=== PATIENT | male | born 1945 | race Caucasian/White ===

== ENCOUNTER → 2016-12-09 | Day surgery (SDC) | payer OTHER ==
[~2016-12-09] VITALS: Ht 175.3 cm; Wt 89.0 kg
[~2016-12-09] MED LIST: ASPI81TA28 PO; FENTANYL CITRATE INJ 50 MCG/1 ML 2 ML VIAL ONE; LPT40 PO; MIDAZOLAM HCL 5 MG/ML 1 ML VIAL ONE; NAPR-1169 PO; OMEG10007 PO; SIMV40TA2 PO
[2016-12-09 16:02] VITALS: Ht 175.3 cm; Wt 89.0 kg
--- NOTE | 2016-12-09 16:14 | Endo History and Physical ---
History & Physical Date of Service: Dec 09, 2016. Chief Complaint: RECTAL BLEEDING Referring Physician: DR DEE History of Present Illness post polyp bleed Past Surgical History Hx Cardiac Surgery: No Hx Internal Defibrillator: No Hx Pacemaker: No Hx Abdominal Surgery: No Hx of Implantable Prosthesis: No Hx Post-Op Nausea and Vomiting: No Hx Cancer Surgery: No Hx Thoracic Surgery: No Hx Orthopedic: No Hx Urinary Tract Surgery: No Family History None Social History Smoking Status: Former Smoker Hx Substance Use: No Hx Alcohol Use: No Allergies Coded Allergies: No Known Allergies (Unverified , 12/09/16) Current Medications Reported Home Medications Medications Dose Route/Sig Max Daily Dose Days Date Category [place]-3 (Fish Oil) 1 Ea Cap 1 Cap PO 12/09/16 Reported Atorvastatin Calcium (Atorvastatin) 40 Mg Tab 40 Mg PO QD 12/09/16 Reported Aspirin Ec (Aspirin) 81 Mg Tab 81 Mg PO QAM 03/16/14 Reported Vital Signs Weight (Kilograms): 89 Height (Feet): 5 Height (Inches): 9 Date Time Temp Pulse Resp B/P Pulse Ox O2 Delivery O2 Flow Rate FiO2 12/09/16 16:07 36.8 71 20 159/90 97 Room Air Physical Exam General Appearance: no apparent distress Respiratory/Chest: Respiratory effort: no dyspnea Auscultation: breath sounds normal Cardiovascular: Heart Auscultation: RRR Assessment and Plan Post polyp bleed - cscopy
--- NOTE | 2016-12-09 16:37 | Discharge Instructions ---
Endoscopy Patient Instructions Date / Procedure(s) Performed Dec 09, 2016. Colonoscopy Allergy Information Coded Allergies: No Known Allergies (Unverified , 12/09/16) Discharge Date / Findings Dec 09, 2016. Post polypectomy ulcer with non bleeding visible vessel, clipped. Provider Instructions Activity Restrictions - No exercising or heavy lifting for 24 hours. - Do not drink alcohol the day of the procedure. - Do not drive a car or operate machinery until the day after the procedure. - Do not make any important decisions or sign important papers in 24 hours after the procedure. Following Day: - Return to full activity which may include returning to work/school. Diet Start your diet with liquids and light foods (jello, soup, juice, toast). Then eat your usual diet if not nauseated. Treatment For Common After Affects For mild abdominal pain, bloating, or excessive gas: - Rest - Eat lightly - Lie on right side Follow-Up Information Follow-up with DR DEE as scheduled Anesthesia Information What You Should Know You have had a procedure that required some medicine to reduce anxiety and discomfort. This treatment is called moderate sedation. After receiving the treatment, you may be sleepy, but you will be able to breathe on your own. The effects of the treatment may last for several hours. Follow these instructions along with Activity/Diet recommendations noted above: * Do NOT do anything where dizziness or clumsiness would be dangerous. * Rest quietly at home today, then you can be up and about tomorrow. * Have a responsible person stay with you the rest of today. * You may have had an I.V. today. If so, you may take the dressing off later today. Recommendations Call your doctor if: * Trouble breathing * Continuous vomiting for more than 24 hours * Temperature above 101 degrees * Severe abdominal pain or bloating * Pain not relieved by pain medicine ordered * There is increased drainage or redness from any incision * A large amount of rectal bleeding greater than 2-3 tablespoons. (If you had a polyp/s removed or have hemorrhoids, a small amount of blood - from the rectum is to be expected.) * You have any unanswered questions or concerns. IN THE EVENT OF A SERIOUS EMERGENCY, GO TO THE NEAREST EMERGENCY ROOM Your discharge instructions were prepared by provider Oumar [place]. Patient Instructions Signature Page Jaswinder Freed Patient (or Guardian) Signature/Date: I have read and understand the instructions given to me by my caregivers. Caregiver/RN/Doctor Signature/Date: The above-named patient and/or guardian has received patient instructions on this date. + Original Patient Signature Page (only) stays with chart. Please make copy for patient.
--- NOTE | 2016-12-09 16:37 | GI REPORT ---
Procedure Date: 12/09/2016 4:07 PM Procedure: Colonoscopy Indications: Treatment of bleeding from polypectomy site Medicines: Midazolam 2 mg IV, Fentanyl 75 micrograms IV Complications: No immediate complications. Estimated Blood Loss: Estimated blood loss: none. Procedure: Pre-Anesthesia Assessment: - ASA Grade Assessment: III - A patient with severe systemic disease. After I obtained informed consent, the scope was passed under direct vision. Throughout the procedure, the patient's blood pressure, pulse, and oxygen saturations were monitored continuously. The Scope was introduced through the anus and advanced to the ileocecal valve. The colonoscopy was performed without difficulty. The patient tolerated the procedure well. The quality of the bowel preparation was adequate. Findings: The perianal and digital rectal examinations were normal. There was green stool throughout the colon. There was no evidence of active bleeding. There was an ulcer at the tranverse colon, adjacent to a tattoo. The ulcer had a non bleeeding visible vessel. Four clips applied to polypectomy site with adequate hemostasis. Impression: Post polypectomy ulcer with non bleeding visible vessel. Clipped. Recommendation: - Discharge patient to home. Oumar Yoon M.D. Oumar Yoon MD 12/09/2016 4:36:54 PM This report has been signed electronically. Note Initiated On: 12/09/2016 4:07 PM I attest to the content of the Intraoperative Record and orders documented therein, exceptions below
[2016-12-09 17:06] VITALS: BP 155/83; PULSE 65; O2SAT 97
== END | disposition home or self-care (01) ==
LOC: C.GI 15:46
PROVIDERS: ATTEND Internal Medicine Gastroenterology
DX: K63.3 Ulcer of intestine (principal); K91.840 Postprocedural hemorrhage of a digestive system organ or structure following a digestive system procedure; Z87.891 Personal history of nicotine dependence